=== PATIENT | female | born 1990 | race Caucasian/White ===

== ENCOUNTER → 2020-11-26 09:30 | Outpatient (CLI) | payer OTHER, SELFPAY ==
[2020-11-26 10:14] LABS: Add Manual Diff / Slide Review NO; Basophils Absolute Auto 0 /uL (0-100); Basophils Percent Auto 0.9 % (0-2); Eosinophils Absolute Auto 100 /uL (0-450); Eosinophils Percent Auto 1.6 % (2-4); Hematocrit 44.2 % (36-46); Hemoglobin 15.3 g/dL (12.0-16.0); Lymphocytes Absolute Auto 2200 /uL (1100-4500); Lymphocytes Percent Auto 40.9 % (25-40); Mean Corpuscular HGB Conc 34.7 % (30-36); Mean Corpuscular Hemoglobin 32.1 PG (26-34); Mean Corpuscular Volume 92.7 fL (80-100); Monocytes Absolute Auto 600 /uL (0-900); Monocytes Percent Auto 11.3 % (3-14); Neutrophils Absolute Auto 2500 /uL (1500-7000); Neutrophils Percent Auto 45.3 % (50-75); Platelet Count 245 X10^3/uL (150-400); Red Blood Cell Count 4.77 X10^6/uL (4.0-5.2); Red Cell Distribution Width 12.1 % (11.6-14.8); White Blood Cell Count 5.5 X10^3/uL (4.5-11.0)
== END ==
PROVIDERS: Referring Provider Nurse Practitioner; Visit Provider Nurse Practitioner
DX: R59.1 Generalized enlarged lymph nodes (principal)
CPT/HCPCS: 36415; 85025

== ENCOUNTER → 2020-12-27 14:33 | Outpatient (CLI) | payer OTHER, SELFPAY ==
--- NOTE | 2020-12-27 | DI.US.S_ITS ---
PROCEDURE: US SOFT TISSUE HEAD AND NECK INDICATIONS: LUMP RIGHT POSTERIOR HEAD TECHNIQUE: Real-time scanning was performed of the neck region of interest, with image documentation. COMPARISON: None. FINDINGS: Focused ultrasound examination involving right posterior occipital region shows a 1.1 x 0.2 x 1.2 cm lymph no with benign appearing fatty hilum. No other soft tissue mass or fluid collection is seen. IMPRESSION: Benign-appearing lymph node in right posterior occipital scalp as above. Dictated by: Jong Potter M.D. on 12/27/2020 at 15:53 Approved by: Jong Potter M.D. on 12/27/2020 at 15:54
== END ==
PROVIDERS: PCP Family Medicine; Referring Provider Family Medicine; Visit Provider Family Medicine
DX: R59.0 Localized enlarged lymph nodes
CPT/HCPCS: 76536

== ENCOUNTER → 2022-07-26 06:59 | Outpatient (CLI) | payer OTHER, SELFPAY ==
--- NOTE | 2022-07-26 | DI.US.S_ITS ---
PROCEDURE: US SOFT TISSUE HEAD AND NECK INDICATIONS: Generalized enlarged lymph nodes TECHNIQUE: Real-time scanning was performed of the neck region of interest, with image documentation. COMPARISON: [facility], [place], US SOFT TISSUE HEAD AND NECK, 12/27/2020, 15:00. FINDINGS: Multiple grayscale color Doppler images of the palpable area of concern were acquired. At the palpable area concern involving the right lateral neck, there are 2 normal appearing lymph nodes with reniform morphology, central fatty hilum and uniform cortex. One measures 1.5 x 0.4 x 0.8 cm and the 2nd measures 1.5 x 0.4 x 1.2 cm. The 2nd palpable area of concern correlate with the posterior occiput. Previously seen lymph node is no longer visualized. Incidental note of a nonspecific nonvascular hypoechoic focus measuring 0.6 x 0.1 x 0.4 cm. This may represent small soft tissue nodule versus scarring versus other probably benign finding. IMPRESSION: 1. Palpable area of concern over the lateral right neck correlates with 2 normal appearing lymph nodes. 2. Palpable area of concern of the posterior scalp/occiput correlates with a nonspecific, nonvascular 0.6 cm hypoechoic focus which may represent a small focal fluid collection versus scar versus other probably benign finding. Recommend continued clinical surveillance with follow-up imaging for any new or developing suspicious findings. Dictated by: Barry Winkler M.D. on 07/26/2022 at 18:29 Approved by: Barry Winkler M.D. on 07/26/2022 at 18:33
== END ==
PROVIDERS: PCP Family Medicine; Referring Provider Registered Nurse; Visit Provider Registered Nurse
DX: R59.1 Generalized enlarged lymph nodes (principal)
CPT/HCPCS: 76536